=== PATIENT | female | born 1955 | race Caucasian/White ===

== ENCOUNTER 2017-12-08 13:49 | Inpatient (IN) | payer BC ==
[~2017-12-08] VITALS: Ht 167.6 cm; Wt 100.6 kg
[~2017-12-08 13:49] MED LIST: ARIP1TAB7 PO; CAR3125T OR; INSLANTI SC; LAMO200T34 PO; LEVO25TA6 PO; SIMV-13 PO; VENL100T PO
[2017-12-08] MEDS ORDERED: SODIUM CHLORIDE 0.9% 1,000 ML IV ONE (13:55)
[2017-12-08] MEDS ORDERED: ONDANSETRON HCL 4 MG/2 ML VIAL IV ONE (14:00)
[2017-12-08] MEDS ORDERED: LORazepam 2MG/ML-1ML VIAL IV ONE (14:00)
[2017-12-08 14:26] LABS: Basophils # (auto) 0.1 uL; Basophils % (auto) 0.6 % (0.0-2.0); Eosinophils # (auto) 0.6 uL; Eosinophils % (auto) 4.5 % (0.0-7.0); Hematocrit 38.2 % (36.0-46.0); Hemoglobin 12.3 g/dL (12.2-16.2); Lymphocytes # (auto) 3.6 uL; Lymphocytes % (auto) 27.1 % (10.0-50.0); Mean Corpuscular Hgb Conc. 32.1 g/dL (32.0-36.0); Mean Corpuscular Volume 87.3 fL (80.0-100.0); Monocytes % (auto) 7.7 % (0.0-12.0); Neutrophils # (auto) 7.9 uL; Neutrophils % (auto) 60.1 % (37.0-80.0); Platelet Count (auto) 339 10^3/uL (140-450); Red Blood Cells 4.38 10^6/uL (4.0-5.20); Red Cell Distribution Width 15.4 % (11.8-14.3); White Blood Cell 13.1 10^3/uL (4.4-10.8)
[2017-12-08 14:50] LABS: Alanine Aminotransferase 35 U/L (13-56); Albumin 3.9 g/dL (3.4-5.0); Alkaline Phosphatase 91 U/L (45-117); Anion Gap 10 (5-15); Aspartate Aminotransferase 24 U/L (15-37); BUN/Creatinine Ratio 23.2; Bilirubin, Total 0.2 mg/dL (0.2-1.0); Blood Urea Nitrogen 29 mg/dL (7-18); Calcium 9.9 mg/dL (8.5-10.1); Carbon Dioxide 24 mmol/L (21-32); Chloride 103 mmol/L (98-107); GFR African American 56 mL/min; GFR Non-African American 46 mL/min; Glucose 80 mg/dL (74-106); Magnesium 2.4 mg/dL (1.6-2.6); Potassium 5.3 mmol/L (3.5-5.1); Sodium 137 mmol/L (136-145); Total Protein 8.8 g/dL (6.4-8.2)
[2017-12-08] MEDS ORDERED: NITROGLYCERIN 0.4 MG SL TAB SL PRN (16:15)
[2017-12-08] MEDS ORDERED: TEMAZEPAM 15 MG CAP PO PRN (16:15)
[2017-12-08] MEDS ORDERED: MORPHINE SULFATE 4 MG/ML SYR/VIAL IV PRN ×2 (16:15)
[2017-12-08] MEDS ORDERED: HYDROcodone-ACET 5/325MG TAB PO PRN (16:15)
[2017-12-08] MEDS ORDERED: D5W/SOD CHLO 0.9% 1,000 ML IV SCH (16:15)
[2017-12-08] MEDS ORDERED: DEXTROSE (50%) 50ML SYRG IV PRN (16:15)
[2017-12-08] MEDS ORDERED: LACTULOSE 20Gm/30ML SOLN PO PRN (16:15)
[2017-12-08] MEDS ORDERED: ACETAMINOPHEN 500 MG TAB PO PRN (16:15)
[2017-12-08] MEDS: SODIUM CHLORIDE 0.9% 1,000 ML IV SCH (16:40)
[2017-12-08] MEDS: ENOXAPARIN SOD 40 MG/0.4 ML SYRINGE SC SCH (16:42)
[2017-12-08] MEDS: metroNIDAZOLE 500MG/100ML 100 ML IV SCH ×2 (16:43→22:41)
[2017-12-08 16:51] LABS: Amylase 42 U/L (25-115); Lipase 77 U/L (73-393)
[2017-12-08 17:29] LABS: INR 1.69 (0.9-1.15); Partial Thromboplastin Time 33.1 sec (22.64-33.71); Prothrombin Time 18.5 sec (9.37-12.3)
[2017-12-08] MEDS: FAMOTIDINE (10MG/ML) 2ML VL IV SCH (18:03)
[2017-12-08] MEDS: buPROPion HCL 75 MG TAB PO SCH (19:09)
[2017-12-08 19:38] LABS: CRP High Sensitivity 1.25 mg/dL (< 0.3)
[2017-12-08 19:42] LABS: Urine Bacteria FEW /hpf (None Seen); Urine Blood Negative /uL (Negative); Urine WBC 2 /hpf (0 - 5)
[2017-12-08] MEDS: ACCU-CHEK COMFORT CURVE STRIP VI SCH (20:00)
[2017-12-08] MEDS ORDERED: WARFARIN SODIUM 2.5 MG TAB PO ONE (21:00)
[2017-12-08 22:00] VITALS: BP 127/64
[2017-12-08] MEDS: ARIPIPRAZOLE 20 MG PO SCH (22:00)
[2017-12-08] MEDS ORDERED: VENLAFAXINE HCL 25MG TABLET PO SCH ×2 (22:00)
[2017-12-08] MEDS ORDERED: lamoTRIgine 100 MG TAB PO SCH (22:00)
[2017-12-08] MEDS ORDERED: VENLAFAXINE HYDROCHLORIDE PO SCH (22:00)
[2017-12-08] MEDS ORDERED: PATIENTS OWN MEDICATION (Simvastatin 40 MG) PO SCH (22:00)
[2017-12-08] MEDS ORDERED: LAMOTRIGINE 200 MG PO SCH (22:00)
[2017-12-08] MEDS: CARVEDILOL 3.125 MG TAB PO SCH (22:25)
[2017-12-08] MEDS: PRAVASTATIN SODIUM 20 MG TAB PO SCH (22:25)
[2017-12-08] MEDS: lamoTRIgine 100 MG TAB PO SCH (22:27)
[2017-12-09] MEDS: ACCU-CHEK COMFORT CURVE STRIP VI SCH ×6 (00:05→20:00)
[2017-12-09 03:32] LABS: Albumin 3.3 g/dL (3.4-5.0); BUN/Creatinine Ratio 19.4; Bilirubin, Total 0.3 mg/dL (0.2-1.0); Calcium 8.6 mg/dL (8.5-10.1); Potassium 4.5 mmol/L (3.5-5.1); Total Protein 7.7 g/dL (6.4-8.2)
[2017-12-09] MEDS: FAMOTIDINE (10MG/ML) 2ML VL IV SCH ×2 (04:26→17:22)
[2017-12-09] MEDS: metroNIDAZOLE 500MG/100ML 100 ML IV SCH ×2 (04:57→11:42)
[2017-12-09 05:23] VITALS: BP 125/74
[2017-12-09] MEDS: SODIUM CHLORIDE 0.9% 1,000 ML IV SCH ×2 (06:00→17:25)
[2017-12-09] MEDS: PROMETHAZINE HCL 25 MG/ML 1ML IV PRN ×3 (06:33→20:58)
[2017-12-09] MEDS: LORazepam 0.5 MG TAB PO PRN (06:33)
[2017-12-09] MEDS: buPROPion HCL 75 MG TAB PO SCH ×2 (06:42→18:16)
[2017-12-09 07:33] LABS: Basophils # (auto) 0.1 uL; Basophils % (auto) 0.7 % (0.0-2.0); Eosinophils # (auto) 0.4 uL; Eosinophils % (auto) 3.5 % (0.0-7.0); Hematocrit 35.7 % (36.0-46.0); Hemoglobin 11.3 g/dL (12.2-16.2); Lymphocytes # (auto) 2.3 uL; Lymphocytes % (auto) 19.5 % (10.0-50.0); Mean Corpuscular Hemoglobin 27.7 pg (28.0-32.0); Mean Corpuscular Hgb Conc. 31.6 g/dL (32.0-36.0); Mean Corpuscular Volume 87.9 fL (80.0-100.0); Monocytes % (auto) 8.4 % (0.0-12.0); Neutrophils # (auto) 7.9 uL; Neutrophils % (auto) 67.9 % (37.0-80.0); Platelet Count (auto) 309 10^3/uL (140-450); Red Blood Cells 4.06 10^6/uL (4.0-5.20); Red Cell Distribution Width 15.8 % (11.8-14.3); White Blood Cell 11.7 10^3/uL (4.4-10.8)
[2017-12-09 07:49] LABS: INR 1.68 (0.9-1.15); Prothrombin Time 18.4 sec (9.37-12.3)
[2017-12-09 08:15] VITALS: BP 134/57
[2017-12-09] MEDS: ASPirin 81 mg TAB PO SCH (10:07)
[2017-12-09] MEDS: CARVEDILOL 3.125 MG TAB PO SCH ×2 (10:07→22:42)
[2017-12-09] MEDS: lamoTRIgine 100 MG TAB PO SCH ×2 (10:08→22:00)
[2017-12-09] MEDS: LEVOTHYROXINE SODIUM 25 MCG TAB PO SCH (10:08)
[2017-12-09] MEDS: ENOXAPARIN SOD 40 MG/0.4 ML SYRINGE SC SCH (10:08)
[2017-12-09] MEDS: PANTOPRAZOLE 40 MG TAB PO SCH (10:08)
[2017-12-09 11:50] VITALS: BP 135/59
[2017-12-09 16:24] VITALS: BP 141/72
[2017-12-09 20:00] VITALS: BP 137/60
[2017-12-09 22:00] VITALS: BP 137/60
[2017-12-09] MEDS: ARIPIPRAZOLE 20 MG PO SCH (22:00)
[2017-12-09] MEDS: PRAVASTATIN SODIUM 20 MG TAB PO SCH (22:42)
[2017-12-09] MEDS: ENOXAPARIN SOD 100 MG/1 ML SYRINGE SC SCH (22:44)
[2017-12-10] VITALS (7 sets, daily range): BP systolic 128–144; BP diastolic 52–76
[2017-12-10] MEDS: ACCU-CHEK COMFORT CURVE STRIP VI SCH ×6 (00:10→18:26)
[2017-12-10] MEDS: FAMOTIDINE (10MG/ML) 2ML VL IV SCH ×2 (04:16→17:12)
[2017-12-10] MEDS: buPROPion HCL 75 MG TAB PO SCH ×2 (07:57→18:38)
[2017-12-10] MEDS: SODIUM CHLORIDE 0.9% 1,000 ML IV SCH ×2 (07:57→22:16)
[2017-12-10] MEDS: LORazepam 0.5 MG TAB PO PRN (08:08)
[2017-12-10] MEDS: ENOXAPARIN SOD 100 MG/1 ML SYRINGE SC SCH ×2 (09:51→22:00)
[2017-12-10] MEDS: LEVOTHYROXINE SODIUM 25 MCG TAB PO SCH (09:52)
[2017-12-10] MEDS: PANTOPRAZOLE 40 MG TAB PO SCH (09:52)
[2017-12-10] MEDS: lamoTRIgine 100 MG TAB PO SCH ×2 (09:52→22:18)
[2017-12-10] MEDS: ASPirin 81 mg TAB PO SCH (09:52)
[2017-12-10] MEDS: CARVEDILOL 3.125 MG TAB PO SCH ×2 (10:05→22:17)
[2017-12-10] MEDS: ARIPIPRAZOLE 20 MG PO SCH (22:00)
[2017-12-10] MEDS: PRAVASTATIN SODIUM 20 MG TAB PO SCH (22:18)
[2017-12-11] MEDS: ACCU-CHEK COMFORT CURVE STRIP VI SCH ×6 (00:17→20:05)
[2017-12-11 05:00] VITALS: BP 122/61
[2017-12-11] MEDS: FAMOTIDINE (10MG/ML) 2ML VL IV SCH ×2 (05:59→16:18)
[2017-12-11 06:31] LABS: Basophils # (auto) 0.1 uL; Basophils % (auto) 0.6 % (0.0-2.0); Eosinophils # (auto) 0.4 uL; Eosinophils % (auto) 3.3 % (0.0-7.0); Hematocrit 33.5 % (36.0-46.0); Hemoglobin 11.1 g/dL (12.2-16.2); Lymphocytes # (auto) 2.8 uL; Lymphocytes % (auto) 23.1 % (10.0-50.0); Mean Corpuscular Hemoglobin 28.8 pg (28.0-32.0); Mean Corpuscular Hgb Conc. 33.1 g/dL (32.0-36.0); Mean Corpuscular Volume 87.2 fL (80.0-100.0); Monocytes # (auto) 1.1 uL; Monocytes % (auto) 9.3 % (0.0-12.0); Neutrophils # (auto) 7.6 uL; Neutrophils % (auto) 63.7 % (37.0-80.0); Nucleated Red Blood Cells % 0.1 %; Platelet Count (auto) 275 10^3/uL (140-450); Red Blood Cells 3.84 10^6/uL (4.0-5.20); Red Cell Distribution Width 15.5 % (11.8-14.3)
[2017-12-11 06:42] LABS: Calcium 8.8 mg/dL (8.5-10.1); Magnesium 2.4 mg/dL (1.6-2.6); Potassium 4.6 mmol/L (3.5-5.1)
[2017-12-11] MEDS: buPROPion HCL 75 MG TAB PO SCH ×2 (07:00→18:16)
[2017-12-11 08:04] VITALS: BP 144/69
[2017-12-11] MEDS ORDERED: LIDOCAINE 2%HCL (LOCAL ANESTH.) INJ 20ML MDV ONE (08:09)
[2017-12-11] MEDS ORDERED: MIDAZOLAM HCL 1MG/1ML-2 ML VIAL ONE (08:22)
[2017-12-11] MEDS ORDERED: fentaNYL CITRATE 100 MCG/2 ML VL ONE (08:22)
[2017-12-11] MEDS ORDERED: ANGIOMAX 250 MG VIAL IV ONE (08:23)
[2017-12-11] MEDS ORDERED: SODIUM CHL 0.9% 0 ML ONE (08:23)
[2017-12-11 08:41] VITALS: BP 144/69
[2017-12-11] MEDS ORDERED: IOHEXOL 350 MG/ML 100ML IJ ONE (08:54)
[2017-12-11] MEDS ORDERED: SODIUM CHLORIDE 0.9% 1,000 ML IV SCH (09:35)
[2017-12-11] MEDS: ASPirin 81 mg TAB PO SCH (09:52)
[2017-12-11] MEDS: ENOXAPARIN SOD 100 MG/1 ML SYRINGE SC SCH ×2 (09:52→21:28)
[2017-12-11] MEDS: PANTOPRAZOLE 40 MG TAB PO SCH (10:46)
[2017-12-11] MEDS: lamoTRIgine 100 MG TAB PO SCH ×2 (10:46→21:42)
[2017-12-11] MEDS: LEVOTHYROXINE SODIUM 25 MCG TAB PO SCH (10:46)
[2017-12-11] MEDS: CARVEDILOL 3.125 MG TAB PO SCH ×2 (10:47→21:41)
[2017-12-11 12:13] VITALS: BP 126/66
[2017-12-11 17:10] VITALS: BP 134/63
[2017-12-11] MEDS: SODIUM CHLORIDE 0.9% 1,000 ML IV SCH (18:16)
[2017-12-11] MEDS: ARIPIPRAZOLE 20 MG PO SCH (21:27)
[2017-12-11] MEDS: PRAVASTATIN SODIUM 20 MG TAB PO SCH (21:42)
[2017-12-11 22:03] VITALS: BP 131/57
[2017-12-12] MEDS: ACCU-CHEK COMFORT CURVE STRIP VI SCH ×4 (00:26→12:00)
[2017-12-12] MEDS: SODIUM CHLORIDE 0.9% 1,000 ML IV SCH (00:29)
[2017-12-12] MEDS: FAMOTIDINE (10MG/ML) 2ML VL IV SCH (04:25)
[2017-12-12 04:41] VITALS: BP 122/52
[2017-12-12 05:28] LABS: Basophils # (auto) 0.1 uL; Basophils % (auto) 0.6 % (0.0-2.0); Eosinophils # (auto) 0.3 uL; Hematocrit 32.9 % (36.0-46.0); Hemoglobin 10.8 g/dL (12.2-16.2); Lymphocytes # (auto) 1.8 uL; Lymphocytes % (auto) 17.3 % (10.0-50.0); Mean Corpuscular Hemoglobin 28.6 pg (28.0-32.0); Mean Corpuscular Hgb Conc. 32.7 g/dL (32.0-36.0); Mean Corpuscular Volume 87.6 fL (80.0-100.0); Monocytes % (auto) 9.4 % (0.0-12.0); Neutrophils # (auto) 7.1 uL; Neutrophils % (auto) 69.7 % (37.0-80.0); Nucleated Red Blood Cells % 0.1 %; Platelet Count (auto) 254 10^3/uL (140-450); Red Blood Cells 3.75 10^6/uL (4.0-5.20); Red Cell Distribution Width 15.8 % (11.8-14.3); White Blood Cell 10.2 10^3/uL (4.4-10.8)
[2017-12-12 05:43] LABS: INR 1.56 (0.9-1.15); Partial Thromboplastin Time 33.3 sec (22.64-33.71); Prothrombin Time 17.1 sec (9.37-12.3)
[2017-12-12 05:51] LABS: Calcium 8.3 mg/dL (8.5-10.1); Magnesium 2.3 mg/dL (1.6-2.6); Potassium 4.3 mmol/L (3.5-5.1)
[2017-12-12] MEDS: buPROPion HCL 75 MG TAB PO SCH (06:06)
[2017-12-12] MEDS ORDERED: IOHEXOL 350 MG/ML 100ML IJ ONE (07:14)
[2017-12-12] MEDS: ASPirin 81 mg TAB PO SCH (07:31)
[2017-12-12] MEDS: ENOXAPARIN SOD 100 MG/1 ML SYRINGE SC SCH (07:31)
[2017-12-12 08:00] VITALS: BP 132/62
[2017-12-12 08:31] VITALS: BP 132/62
[2017-12-12] MEDS: LEVOTHYROXINE SODIUM 25 MCG TAB PO SCH (09:21)
[2017-12-12] MEDS: lamoTRIgine 100 MG TAB PO SCH (09:21)
[2017-12-12] MEDS: CARVEDILOL 3.125 MG TAB PO SCH (09:22)
[2017-12-12] MEDS: PANTOPRAZOLE 40 MG TAB PO SCH (09:23)
[2017-12-12] MEDS ORDERED: LISINOPRIL 5 MG TAB PO SCH (10:00)
[2017-12-12 10:36] VITALS: BP 132/62
[2017-12-12 12:18] VITALS: BP 133/67
== END 2017-12-12 13:23 | disposition home or self-care (01) | DRG 682 ==
LOC: EDBD 13:49 → ER 13:49 → TELE 13:50 → TELE-EAST 19:30
PROVIDERS: ADMIT Internal Medicine; ATTEND Internal Medicine
PROC: 4A023N8 Measurement of Cardiac Sampling and Pressure, Bilateral, Percutaneous Approach (ICD-10-PCS; principal; 2017-12-08)
PROC: B2151ZZ Fluoroscopy of Left Heart using Low Osmolar Contrast (ICD-10-PCS; 2017-12-08)
PROC: B2111ZZ Fluoroscopy of Multiple Coronary Arteries using Low Osmolar Contrast (ICD-10-PCS; 2017-12-08)
DX: N17.9 Acute kidney failure, unspecified (principal); I21.4 Non-ST elevation (NSTEMI) myocardial infarction; E11.649 Type 2 diabetes mellitus with hypoglycemia without coma; I11.0 Hypertensive heart disease with heart failure; R65.10 Systemic inflammatory response syndrome (SIRS) of non-infectious origin without acute organ dysfunction; E87.5 Hyperkalemia; I50.1 Left ventricular failure, unspecified; I42.0 Dilated cardiomyopathy; E86.0 Dehydration; I08.0 Rheumatic disorders of both mitral and aortic valves; D72.829 Elevated white blood cell count, unspecified; E03.9 Hypothyroidism, unspecified; E66.9 Obesity, unspecified; E78.5 Hyperlipidemia, unspecified; F31.9 Bipolar disorder, unspecified; Z96.41 Presence of insulin pump (external) (internal); E86.9 Volume depletion, unspecified; I25.10 Atherosclerotic heart disease of native coronary artery without angina pectoris; J40 Bronchitis, not specified as acute or chronic; Z79.4 Long term (current) use of insulin; Z86.73 Personal history of transient ischemic attack (TIA), and cerebral infarction without residual deficits; I25.2 Old myocardial infarction
CPT/HCPCS: 36415; 71045; 80048; 80053; 80061; 81001; 82150; 82550; 82962; 83036; 83690; 83735; 84484; 85025; 85379; 85610; 85652; 85730; 86141; 87081; 93005; 93306; 93460; 96361; 96374; 96375; 99152; J2250; J2405; J3490

== ENCOUNTER 2018-08-10 01:28 | Emergency (ER) | payer BC, OTHER ==
[~2018-08-10] VITALS: Ht 170.2 cm; Wt 90.7 kg
[2018-08-10 03:12] LABS: Basophils # (auto) 0.1 uL; Basophils % (auto) 0.7 % (0.0-2.0); Eosinophils # (auto) 0.4 uL; Eosinophils % (auto) 3.6 % (0.0-7.0); Hemoglobin 12.1 g/dL (12.2-16.2); Lymphocytes # (auto) 2.3 uL; Lymphocytes % (auto) 20.5 % (10.0-50.0); Mean Corpuscular Hemoglobin 28.7 pg (28.0-32.0); Mean Corpuscular Hgb Conc. 31.7 g/dL (32.0-36.0); Mean Corpuscular Volume 90.5 fL (80.0-100.0); Monocytes # (auto) 0.9 uL; Monocytes % (auto) 8.3 % (0.0-12.0); Neutrophils # (auto) 7.6 uL; Neutrophils % (auto) 66.9 % (37.0-80.0); Platelet Count (auto) 307 10^3/uL (140-450); White Blood Cell 11.4 10^3/uL (4.4-10.8)
[2018-08-10 03:23] LABS: Albumin 3.5 g/dL (3.4-5.0); Calcium 8.9 mg/dL (8.5-10.1); Potassium 4.4 mmol/L (3.5-5.1)
[2018-08-10 03:29] LABS: BUN/Creatinine Ratio 14.2; Bilirubin, Total 0.3 mg/dL (0.2-1.0)
[2018-08-10 04:21] VITALS: BP 137/72
== END 2018-08-10 04:24 | disposition home or self-care (01) ==
LOC: EDBD 01:28 → ER 01:40
DX: E16.0 Drug-induced hypoglycemia without coma (principal); T38.3X5A Adverse effect of insulin and oral hypoglycemic [antidiabetic] drugs, initial encounter; I25.10 Atherosclerotic heart disease of native coronary artery without angina pectoris; E11.9 Type 2 diabetes mellitus without complications; E78.5 Hyperlipidemia, unspecified; I10 Essential (primary) hypertension; I25.2 Old myocardial infarction; E07.9 Disorder of thyroid, unspecified; Z90.49 Acquired absence of other specified parts of digestive tract; Z79.4 Long term (current) use of insulin; Z79.899 Other long term (current) drug therapy; Z86.73 Personal history of transient ischemic attack (TIA), and cerebral infarction without residual deficits; Y92.89 Other specified places as the place of occurrence of the external cause
CPT/HCPCS: 36415; 71045; 80053; 82962; 85025

== ENCOUNTER 2018-08-21 00:55 | Inpatient (IN) | payer OTHER ==
[~2018-08-21] VITALS: Ht 167.6 cm; Wt 93.1 kg
[2018-08-21 01:45] LABS: Basophils # (auto) 0.1 uL; Basophils % (auto) 0.6 % (0.0-2.0); Eosinophils # (auto) 0.3 uL; Eosinophils % (auto) 2.4 % (0.0-7.0); Hematocrit 35.9 % (36.0-46.0); Hemoglobin 11.4 g/dL (12.2-16.2); Lymphocytes # (auto) 1.6 uL; Lymphocytes % (auto) 11.5 % (10.0-50.0); Mean Corpuscular Hemoglobin 28.7 pg (28.0-32.0); Mean Corpuscular Hgb Conc. 31.9 g/dL (32.0-36.0); Mean Corpuscular Volume 89.9 fL (80.0-100.0); Monocytes # (auto) 0.9 uL; Monocytes % (auto) 6.7 % (0.0-12.0); Neutrophils # (auto) 10.9 uL; Neutrophils % (auto) 78.8 % (37.0-80.0); Nucleated Red Blood Cells % 0.1 %; Platelet Count (auto) 267 10^3/uL (140-450); Red Blood Cells 3.99 10^6/uL (4.0-5.20); Red Cell Distribution Width 13.8 % (11.8-14.3); White Blood Cell 13.9 10^3/uL (4.4-10.8)
[2018-08-21 02:03] LABS: Albumin 3.2 g/dL (3.4-5.0); BUN/Creatinine Ratio 11.2; Calcium 8.3 mg/dL (8.5-10.1); Potassium 3.8 mmol/L (3.5-5.1)
[2018-08-21 02:06] LABS: Bilirubin, Total 0.2 mg/dL (0.2-1.0); Total Protein 7.4 g/dL (6.4-8.2)
[2018-08-21 05:50] LABS: Salicylate < 1.7 mg/dL (2.8-20.0)
[2018-08-21 05:52] LABS: Acetaminophen < 2.0 ug/mL (10-30)
[2018-08-21] MEDS ORDERED: DEXTROSE (50%) 50ML SYRG IV PRN ×2 (07:30→15:30)
[2018-08-21] MEDS: ACCU-CHEK COMFORT CURVE STRIP VI SCH ×6 (08:10→22:29)
[2018-08-21 08:36] LABS: Urine Bacteria FEW /hpf (None Seen); Urine Blood Negative /uL (Negative); Urine Mucus FEW (None Seen); Urine WBC 2 /hpf (0 - 5)
[2018-08-21 08:41] LABS: Alcohol, Urine < 3.0 mg/dL (0-5); Amphetamine Screen, Urine NEGATIVE (NEGATIVE); Barbiturate Scree,Urine NEGATIVE (NEGATIVE); Benzodiazephine Screen, Urine NEGATIVE (NEGATIVE); Cannabinoid Screen, Urine NEGATIVE (NEGATIVE); Cocaine Screen, Urine NEGATIVE (NEGATIVE); Opiate Scree,Urine NEGATIVE (NEGATIVE); Phencyclidine Screen, Urine NEGATIVE (NEGATIVE)
[2018-08-21 08:48] VITALS: BP 148/69
[2018-08-21] MEDS: VENLAFAXINE HCL 25MG TABLET PO SCH ×2 (10:10→22:28)
[2018-08-21] MEDS: lamoTRIgine 100 MG TAB PO SCH ×2 (10:10→22:28)
[2018-08-21] MEDS: CARVEDILOL 3.125 MG TAB PO SCH ×2 (10:11→22:29)
[2018-08-21] MEDS: ALPRAZolam 0.5 MG TAB PO PRN (12:48)
[2018-08-21 13:00] VITALS: BP 131/57
[2018-08-21 17:00] VITALS: BP 138/68
[2018-08-21] MEDS ORDERED: PRAZ2CAP PO (18:03)
[2018-08-21] MEDS ORDERED: ARIP1TAB5 PO (18:03)
[2018-08-21] MEDS ORDERED: DULO60CA PO (18:09)
[2018-08-21] MEDS ORDERED: WARF1TAB36 PO (18:09)
[2018-08-21] MEDS ORDERED: LISI10TA6 PO (18:09)
[2018-08-21] MEDS ORDERED: BUPR150T6 PO (18:09)
[2018-08-21] MEDS ORDERED: CLON0.5T10 PO (18:09)
[2018-08-21] MEDS: InsuLIN REG 1unit/0.01ml Soln (100units/ml) SC SCH ×2 (18:47→22:29)
[2018-08-21 22:00] VITALS: BP 122/53
[2018-08-22] MEDS: ACCU-CHEK COMFORT CURVE STRIP VI SCH ×9 (02:00→22:22)
[2018-08-22 05:04] VITALS: BP 125/65
[2018-08-22] MEDS: LEVOTHYROXINE SODIUM 25 MCG TAB PO SCH (06:30)
[2018-08-22] MEDS: InsuLIN REG 1unit/0.01ml Soln (100units/ml) SC SCH ×4 (06:31→22:32)
[2018-08-22 08:39] VITALS: BP 134/63
[2018-08-22] MEDS: lamoTRIgine 100 MG TAB PO SCH ×2 (10:17→22:32)
[2018-08-22] MEDS: CARVEDILOL 3.125 MG TAB PO SCH ×2 (10:18→22:31)
[2018-08-22] MEDS: VENLAFAXINE HCL 25MG TABLET PO SCH ×2 (10:19→22:31)
[2018-08-22 13:00] VITALS: BP 166/65
[2018-08-22 17:00] VITALS: BP 166/70
[2018-08-22 22:00] VITALS: BP 156/69
[2018-08-22] MEDS ORDERED: INSULIN LANTUS (GLARGINE) 1 /0.01ml (100units/ml) SC SCH (22:00)
[2018-08-23 05:00] VITALS: BP 142/68
[2018-08-23] MEDS: LEVOTHYROXINE SODIUM 25 MCG TAB PO SCH (06:26)
[2018-08-23] MEDS: ACCU-CHEK COMFORT CURVE STRIP VI SCH ×4 (06:26→22:07)
[2018-08-23] MEDS: InsuLIN REG 1unit/0.01ml Soln (100units/ml) SC SCH ×4 (06:27→22:15)
[2018-08-23 08:26] VITALS: BP 135/66
[2018-08-23] MEDS: VENLAFAXINE HCL 25MG TABLET PO SCH ×2 (11:55→22:07)
[2018-08-23] MEDS: lamoTRIgine 100 MG TAB PO SCH ×2 (11:55→22:06)
[2018-08-23] MEDS: CARVEDILOL 3.125 MG TAB PO SCH ×2 (11:56→22:07)
[2018-08-23 12:48] VITALS: BP 185/79
[2018-08-23 17:19] VITALS: BP 148/70
[2018-08-23 21:25] VITALS: BP 119/56
[2018-08-23] MEDS ORDERED: INSULIN LANTUS (GLARGINE) 1 /0.01ml (100units/ml) SC SCH (22:00)
[2018-08-24 04:32] VITALS: BP 108/56
[2018-08-24] MEDS: LEVOTHYROXINE SODIUM 25 MCG TAB PO SCH (06:21)
[2018-08-24] MEDS: InsuLIN REG 1unit/0.01ml Soln (100units/ml) SC SCH ×4 (06:21→23:00)
[2018-08-24] MEDS: ACCU-CHEK COMFORT CURVE STRIP VI SCH ×4 (06:22→23:00)
[2018-08-24 08:54] VITALS: BP 131/63
[2018-08-24] MEDS: lamoTRIgine 100 MG TAB PO SCH ×2 (10:45→22:58)
[2018-08-24] MEDS: CARVEDILOL 3.125 MG TAB PO SCH ×2 (10:47→22:58)
[2018-08-24] MEDS: VENLAFAXINE HCL 25MG TABLET PO SCH ×3 (10:53→22:58)
[2018-08-24 13:27] VITALS: BP 125/70
[2018-08-24 17:14] VITALS: BP 115/63
[2018-08-24 22:00] VITALS: BP 128/64
[2018-08-24] MEDS ORDERED: INSULIN LANTUS (GLARGINE) 1 /0.01ml (100units/ml) SC SCH (22:00)
[2018-08-25 05:00] VITALS: BP 125/67
[2018-08-25] MEDS: LEVOTHYROXINE SODIUM 25 MCG TAB PO SCH (06:27)
[2018-08-25] MEDS: ACCU-CHEK COMFORT CURVE STRIP VI SCH ×4 (06:28→21:34)
[2018-08-25] MEDS: InsuLIN REG 1unit/0.01ml Soln (100units/ml) SC SCH ×4 (06:37→21:33)
[2018-08-25 08:00] VITALS: BP 130/63
[2018-08-25 09:00] VITALS: BP 130/63
[2018-08-25] MEDS: VENLAFAXINE HCL 25MG TABLET PO SCH ×2 (09:43→21:25)
[2018-08-25] MEDS: lamoTRIgine 100 MG TAB PO SCH ×2 (09:43→21:24)
[2018-08-25] MEDS: CARVEDILOL 3.125 MG TAB PO SCH ×2 (09:43→21:24)
[2018-08-25 13:00] VITALS: BP 137/71
[2018-08-25 17:05] VITALS: BP 134/71
[2018-08-25] MEDS: INSULIN LANTUS (GLARGINE) 1 /0.01ml (100units/ml) SC SCH (18:09)
[2018-08-25] MEDS: ALPRAZolam 0.5 MG TAB PO PRN (18:12)
[2018-08-25] MEDS ORDERED: HYDROmorphone HCL 2 MG/ML VL IV PRN (18:45)
[2018-08-25 21:03] VITALS: BP 111/56
[2018-08-25] MEDS ORDERED: INSULIN LANTUS (GLARGINE) 1 /0.01ml (100units/ml) SC SCH (22:00)
[2018-08-26 04:53] VITALS: BP 124/65
[2018-08-26] MEDS: ACCU-CHEK COMFORT CURVE STRIP VI SCH ×4 (06:15→21:24)
[2018-08-26] MEDS: LEVOTHYROXINE SODIUM 25 MCG TAB PO SCH (06:36)
[2018-08-26] MEDS: InsuLIN REG 1unit/0.01ml Soln (100units/ml) SC SCH ×4 (06:36→21:33)
[2018-08-26] MEDS: INSULIN LANTUS (GLARGINE) 1 /0.01ml (100units/ml) SC SCH ×2 (06:37→17:57)
[2018-08-26 06:38] LABS: Basophils # (auto) 0.1 uL; Basophils % (auto) 0.7 % (0.0-2.0); Eosinophils # (auto) 0.5 uL; Eosinophils % (auto) 4.2 % (0.0-7.0); Hematocrit 37.6 % (36.0-46.0); Hemoglobin 12.4 g/dL (12.2-16.2); Lymphocytes # (auto) 2.6 uL; Lymphocytes % (auto) 21.9 % (10.0-50.0); Mean Corpuscular Hemoglobin 29.8 pg (28.0-32.0); Mean Corpuscular Volume 90.3 fL (80.0-100.0); Monocytes # (auto) 0.9 uL; Monocytes % (auto) 7.9 % (0.0-12.0); Neutrophils # (auto) 7.7 uL; Neutrophils % (auto) 65.3 % (37.0-80.0); Nucleated Red Blood Cells % 0.1 %; Platelet Count (auto) 310 10^3/uL (140-450); Red Blood Cells 4.16 10^6/uL (4.0-5.20); Red Cell Distribution Width 13.8 % (11.8-14.3); White Blood Cell 11.7 10^3/uL (4.4-10.8)
[2018-08-26 06:56] LABS: Potassium 4.7 mmol/L (3.5-5.1)
[2018-08-26 07:01] LABS: Albumin 3.4 g/dL (3.4-5.0); BUN/Creatinine Ratio 27.5; Bilirubin, Total 0.4 mg/dL (0.2-1.0); Calcium 9.7 mg/dL (8.5-10.1); Total Protein 7.6 g/dL (6.4-8.2)
[2018-08-26 08:00] VITALS: BP 143/60
[2018-08-26 09:00] VITALS: BP 143/60
[2018-08-26] MEDS: lamoTRIgine 100 MG TAB PO SCH ×2 (09:26→21:23)
[2018-08-26] MEDS: VENLAFAXINE HCL 25MG TABLET PO SCH ×2 (09:27→21:24)
[2018-08-26] MEDS: CARVEDILOL 3.125 MG TAB PO SCH ×2 (09:28→21:23)
[2018-08-26 13:00] VITALS: BP 124/58
[2018-08-26 17:00] VITALS: BP 128/64
[2018-08-26 21:58] VITALS: BP 121/60
[2018-08-27 04:36] VITALS: BP 132/66
[2018-08-27] MEDS: LEVOTHYROXINE SODIUM 25 MCG TAB PO SCH (06:25)
[2018-08-27] MEDS: ACCU-CHEK COMFORT CURVE STRIP VI SCH ×4 (06:26→21:57)
[2018-08-27] MEDS: INSULIN LANTUS (GLARGINE) 1 /0.01ml (100units/ml) SC SCH ×2 (07:00→17:19)
[2018-08-27] MEDS: InsuLIN REG 1unit/0.01ml Soln (100units/ml) SC SCH ×4 (07:00→22:35)
[2018-08-27] MEDS: ALPRAZolam 0.5 MG TAB PO PRN (08:28)
[2018-08-27 09:00] VITALS: BP 142/75
[2018-08-27] MEDS: VENLAFAXINE HCL 25MG TABLET PO SCH ×2 (09:37→21:53)
[2018-08-27] MEDS: lamoTRIgine 100 MG TAB PO SCH ×2 (09:37→21:53)
[2018-08-27] MEDS: CARVEDILOL 3.125 MG TAB PO SCH ×2 (09:38→21:53)
[2018-08-27 13:00] VITALS: BP 127/62
[2018-08-27 16:41] VITALS: BP 116/61
[2018-08-27 22:00] VITALS: BP 118/52
[2018-08-28 05:00] VITALS: BP 139/62
[2018-08-28] MEDS: LEVOTHYROXINE SODIUM 25 MCG TAB PO SCH (06:26)
[2018-08-28] MEDS: ACCU-CHEK COMFORT CURVE STRIP VI SCH ×4 (06:27→22:00)
[2018-08-28] MEDS: InsuLIN REG 1unit/0.01ml Soln (100units/ml) SC SCH ×4 (06:32→22:00)
[2018-08-28] MEDS: INSULIN LANTUS (GLARGINE) 1 /0.01ml (100units/ml) SC SCH ×2 (06:33→17:45)
[2018-08-28 08:00] VITALS: BP 99/56
[2018-08-28 09:20] VITALS: BP 122/50
[2018-08-28] MEDS: VENLAFAXINE HCL 25MG TABLET PO SCH ×2 (10:50→22:51)
[2018-08-28] MEDS: CARVEDILOL 3.125 MG TAB PO SCH ×2 (10:50→22:53)
[2018-08-28] MEDS: lamoTRIgine 100 MG TAB PO SCH ×2 (10:50→22:52)
[2018-08-28 12:30] VITALS: BP 134/68
[2018-08-28 17:01] VITALS: BP 132/64
[2018-08-28] MEDS: ALPRAZolam 0.5 MG TAB PO PRN (18:17)
[2018-08-28 21:49] VITALS: BP 128/69
[2018-08-29 04:45] VITALS: BP 106/70
[2018-08-29] MEDS: LEVOTHYROXINE SODIUM 25 MCG TAB PO SCH (06:24)
[2018-08-29] MEDS: ACCU-CHEK COMFORT CURVE STRIP VI SCH ×4 (06:26→21:54)
[2018-08-29] MEDS: INSULIN LANTUS (GLARGINE) 1 /0.01ml (100units/ml) SC SCH ×2 (06:26→17:19)
[2018-08-29] MEDS: InsuLIN REG 1unit/0.01ml Soln (100units/ml) SC SCH ×4 (06:26→21:54)
[2018-08-29 08:00] VITALS: BP 106/70
[2018-08-29 08:32] VITALS: BP 146/65
[2018-08-29] MEDS: lamoTRIgine 100 MG TAB PO SCH ×2 (10:38→21:53)
[2018-08-29] MEDS: CARVEDILOL 3.125 MG TAB PO SCH ×2 (10:39→21:53)
[2018-08-29] MEDS ORDERED: INSULIN LANTUS (GLARGINE) 1 /0.01ml (100units/ml) SC ONE (10:45)
[2018-08-29] MEDS: VENLAFAXINE HCL 25MG TABLET PO SCH ×2 (11:02→21:53)
[2018-08-29] MEDS: ALPRAZolam 0.5 MG TAB PO PRN (11:02)
[2018-08-29 13:00] VITALS: BP 113/55
[2018-08-29 17:28] VITALS: BP 142/65
[2018-08-29 22:00] VITALS: BP 122/53
[2018-08-30 05:00] VITALS: BP 125/60
[2018-08-30] MEDS: LEVOTHYROXINE SODIUM 25 MCG TAB PO SCH (06:11)
[2018-08-30] MEDS: ACCU-CHEK COMFORT CURVE STRIP VI SCH ×4 (06:42→22:40)
[2018-08-30] MEDS: InsuLIN REG 1unit/0.01ml Soln (100units/ml) SC SCH ×4 (06:42→22:43)
[2018-08-30] MEDS: INSULIN LANTUS (GLARGINE) 1 /0.01ml (100units/ml) SC SCH ×2 (08:56→17:22)
[2018-08-30 09:00] VITALS: BP 128/66
[2018-08-30] MEDS: CARVEDILOL 3.125 MG TAB PO SCH ×2 (10:32→22:39)
[2018-08-30] MEDS: lamoTRIgine 100 MG TAB PO SCH ×2 (10:32→22:38)
[2018-08-30 13:00] VITALS: BP 128/72
[2018-08-30] MEDS: VENLAFAXINE HCL 25MG TABLET PO SCH ×2 (14:38→22:38)
[2018-08-30 22:37] VITALS: BP 126/75
[2018-08-31 04:33] VITALS: BP 129/72
[2018-08-31] MEDS: LEVOTHYROXINE SODIUM 25 MCG TAB PO SCH (06:16)
[2018-08-31] MEDS: InsuLIN REG 1unit/0.01ml Soln (100units/ml) SC SCH ×4 (06:24→22:45)
[2018-08-31] MEDS: ACCU-CHEK COMFORT CURVE STRIP VI SCH ×4 (06:24→22:39)
[2018-08-31 09:00] VITALS: BP 112/60
[2018-08-31] MEDS: INSULIN LANTUS (GLARGINE) 1 /0.01ml (100units/ml) SC SCH ×2 (09:14→18:03)
[2018-08-31] MEDS: VENLAFAXINE HCL 25MG TABLET PO SCH ×2 (10:00→22:00)
[2018-08-31] MEDS: CARVEDILOL 3.125 MG TAB PO SCH ×2 (10:05→22:38)
[2018-08-31] MEDS: lamoTRIgine 100 MG TAB PO SCH ×2 (10:05→22:39)
[2018-08-31 17:00] VITALS: BP 120/59
[2018-08-31 22:00] VITALS: BP 114/57
[2018-08-31] MEDS ORDERED: BISACODYL 10 MG RECT SUPP PR PRN (22:15)
[2018-09-01 05:00] VITALS: BP 110/61
[2018-09-01] MEDS: ACCU-CHEK COMFORT CURVE STRIP VI SCH ×4 (06:18→22:12)
[2018-09-01] MEDS: LEVOTHYROXINE SODIUM 25 MCG TAB PO SCH (06:18)
[2018-09-01] MEDS: INSULIN LANTUS (GLARGINE) 1 /0.01ml (100units/ml) SC SCH ×2 (06:25→17:49)
[2018-09-01] MEDS: InsuLIN REG 1unit/0.01ml Soln (100units/ml) SC SCH ×4 (06:25→22:12)
[2018-09-01 08:34] VITALS: BP 119/74
[2018-09-01] MEDS: CARVEDILOL 3.125 MG TAB PO SCH ×2 (09:31→22:13)
[2018-09-01] MEDS: lamoTRIgine 100 MG TAB PO SCH ×2 (09:31→22:14)
[2018-09-01] MEDS: DOCUSATE SOD 100 MG CAP PO SCH ×2 (09:31→22:13)
[2018-09-01] MEDS: VENLAFAXINE HCL 25MG TABLET PO SCH ×2 (10:00→22:15)
[2018-09-01 13:00] VITALS: BP 130/55
[2018-09-01 17:00] VITALS: BP 123/60
[2018-09-01 22:00] VITALS: BP 108/58
[2018-09-02 05:13] VITALS: BP 127/64
[2018-09-02] MEDS: LEVOTHYROXINE SODIUM 25 MCG TAB PO SCH (06:40)
[2018-09-02] MEDS: ACCU-CHEK COMFORT CURVE STRIP VI SCH ×4 (06:41→21:19)
[2018-09-02] MEDS: InsuLIN REG 1unit/0.01ml Soln (100units/ml) SC SCH ×4 (07:03→21:19)
[2018-09-02] MEDS: INSULIN LANTUS (GLARGINE) 1 /0.01ml (100units/ml) SC SCH ×2 (07:04→17:37)
[2018-09-02 08:00] VITALS: BP 117/50
[2018-09-02 09:00] VITALS: BP 121/58
[2018-09-02] MEDS ORDERED: INSULIN LANTUS (GLARGINE) 1 /0.01ml (100units/ml) SC ONE (10:15)
[2018-09-02] MEDS: lamoTRIgine 100 MG TAB PO SCH ×2 (10:25→21:16)
[2018-09-02] MEDS: DOCUSATE SOD 100 MG CAP PO SCH ×2 (10:25→21:17)
[2018-09-02] MEDS: CARVEDILOL 3.125 MG TAB PO SCH ×2 (10:26→21:17)
[2018-09-02] MEDS ORDERED: VENLAFAXINE HCL 37.5MG TABLET PO ONE (10:30)
[2018-09-02] MEDS: VENLAFAXINE HCL 37.5MG TABLET PO SCH ×2 (10:31→21:18)
[2018-09-02 13:00] VITALS: BP 130/62
[2018-09-02 17:00] VITALS: BP 144/70
[2018-09-02] MEDS: ALPRAZolam 0.5 MG TAB PO PRN (17:38)
[2018-09-02 21:22] VITALS: BP 115/54
[2018-09-03 05:33] VITALS: BP 132/58
[2018-09-03] MEDS: LEVOTHYROXINE SODIUM 25 MCG TAB PO SCH (06:12)
[2018-09-03] MEDS: ACCU-CHEK COMFORT CURVE STRIP VI SCH ×4 (06:12→22:06)
[2018-09-03] MEDS: INSULIN LANTUS (GLARGINE) 1 /0.01ml (100units/ml) SC SCH ×2 (06:16→17:56)
[2018-09-03] MEDS: InsuLIN REG 1unit/0.01ml Soln (100units/ml) SC SCH ×4 (06:17→22:06)
[2018-09-03 08:00] VITALS: BP 129/57
[2018-09-03 09:15] VITALS: BP 129/57
[2018-09-03] MEDS: DOCUSATE SOD 100 MG CAP PO SCH ×2 (10:04→22:05)
[2018-09-03] MEDS: VENLAFAXINE HCL 37.5MG TABLET PO SCH ×2 (10:05→22:06)
[2018-09-03] MEDS: lamoTRIgine 100 MG TAB PO SCH ×2 (10:05→22:06)
[2018-09-03] MEDS: CARVEDILOL 3.125 MG TAB PO SCH ×2 (10:05→22:05)
[2018-09-03 13:33] VITALS: BP 110/50
[2018-09-03 17:00] VITALS: BP 122/54
[2018-09-03 22:00] VITALS: BP 104/56
[2018-09-04] VITALS (7 sets, daily range): BP systolic 97–135; BP diastolic 56–69
[2018-09-04] MEDS: ACCU-CHEK COMFORT CURVE STRIP VI SCH ×4 (06:47→22:07)
[2018-09-04] MEDS: LEVOTHYROXINE SODIUM 25 MCG TAB PO SCH (06:47)
[2018-09-04] MEDS: INSULIN LANTUS (GLARGINE) 1 /0.01ml (100units/ml) SC SCH ×2 (06:48→17:48)
[2018-09-04] MEDS: InsuLIN REG 1unit/0.01ml Soln (100units/ml) SC SCH ×4 (06:48→22:07)
[2018-09-04] MEDS: DOCUSATE SOD 100 MG CAP PO SCH ×2 (10:02→22:06)
[2018-09-04] MEDS: lamoTRIgine 100 MG TAB PO SCH ×2 (10:03→22:07)
[2018-09-04] MEDS: VENLAFAXINE HCL 37.5MG TABLET PO SCH ×2 (10:03→22:06)
[2018-09-04] MEDS: CARVEDILOL 3.125 MG TAB PO SCH ×2 (10:03→22:06)
[2018-09-04] MEDS: ALPRAZolam 0.5 MG TAB PO PRN (12:04)
[2018-09-04 16:12] LABS: Basophils # (auto) 0.1 uL; Basophils % (auto) 0.8 % (0.0-2.0); Eosinophils # (auto) 0.4 uL; Eosinophils % (auto) 3.4 % (0.0-7.0); Hematocrit 35.7 % (36.0-46.0); Hemoglobin 11.4 g/dL (12.2-16.2); Lymphocytes # (auto) 2.6 uL; Lymphocytes % (auto) 22.6 % (10.0-50.0); Mean Corpuscular Volume 90.7 fL (80.0-100.0); Monocytes # (auto) 0.8 uL; Monocytes % (auto) 6.9 % (0.0-12.0); Neutrophils # (auto) 7.6 uL; Neutrophils % (auto) 66.3 % (37.0-80.0); Platelet Count (auto) 307 10^3/uL (140-450); Red Blood Cells 3.94 10^6/uL (4.0-5.20); Red Cell Distribution Width 13.3 % (11.8-14.3); White Blood Cell 11.4 10^3/uL (4.4-10.8)
[2018-09-04 16:34] LABS: BUN/Creatinine Ratio 17.2; Calcium 8.6 mg/dL (8.5-10.1); Potassium 4.2 mmol/L (3.5-5.1)
[2018-09-05 05:00] VITALS: BP 109/58
[2018-09-05] MEDS: LEVOTHYROXINE SODIUM 25 MCG TAB PO SCH (06:26)
[2018-09-05] MEDS: InsuLIN REG 1unit/0.01ml Soln (100units/ml) SC SCH ×4 (06:27→22:06)
[2018-09-05] MEDS: INSULIN LANTUS (GLARGINE) 1 /0.01ml (100units/ml) SC SCH ×2 (06:27→18:22)
[2018-09-05] MEDS: ACCU-CHEK COMFORT CURVE STRIP VI SCH ×4 (06:27→22:06)
[2018-09-05 08:36] VITALS: BP 123/61
[2018-09-05] MEDS: lamoTRIgine 100 MG TAB PO SCH ×2 (09:34→22:05)
[2018-09-05] MEDS: CARVEDILOL 3.125 MG TAB PO SCH ×2 (09:34→22:05)
[2018-09-05] MEDS: DOCUSATE SOD 100 MG CAP PO SCH ×2 (09:34→22:05)
[2018-09-05] MEDS: VENLAFAXINE HCL 37.5MG TABLET PO SCH ×2 (09:35→22:05)
[2018-09-05 13:25] VITALS: BP 127/63
[2018-09-05 21:54] VITALS: BP 108/52
[2018-09-05] MEDS: risperiDONE 1 MG TAB PO SCH (22:05)
[2018-09-06 04:50] VITALS: BP 107/56
[2018-09-06] MEDS: LEVOTHYROXINE SODIUM 25 MCG TAB PO SCH (06:26)
[2018-09-06] MEDS: InsuLIN REG 1unit/0.01ml Soln (100units/ml) SC SCH ×4 (06:26→22:22)
[2018-09-06] MEDS: INSULIN LANTUS (GLARGINE) 1 /0.01ml (100units/ml) SC SCH ×2 (06:27→19:19)
[2018-09-06] MEDS: ACCU-CHEK COMFORT CURVE STRIP VI SCH ×4 (06:27→22:22)
[2018-09-06 09:00] VITALS: BP 112/62
[2018-09-06] MEDS: DOCUSATE SOD 100 MG CAP PO SCH ×2 (10:22→22:21)
[2018-09-06] MEDS: VENLAFAXINE HCL 37.5MG TABLET PO SCH ×2 (10:23→22:21)
[2018-09-06] MEDS: lamoTRIgine 100 MG TAB PO SCH ×2 (10:24→22:21)
[2018-09-06] MEDS: CARVEDILOL 3.125 MG TAB PO SCH ×2 (10:27→22:21)
[2018-09-06 13:00] VITALS: BP 104/59
[2018-09-06 18:20] VITALS: BP 126/68
[2018-09-06 22:00] VITALS: BP 104/57
[2018-09-06] MEDS: risperiDONE 1 MG TAB PO SCH (22:21)
[2018-09-07] MEDS: LEVOTHYROXINE SODIUM 25 MCG TAB PO SCH (05:57)
[2018-09-07] MEDS: InsuLIN REG 1unit/0.01ml Soln (100units/ml) SC SCH ×2 (05:57→12:16)
[2018-09-07] MEDS: ACCU-CHEK COMFORT CURVE STRIP VI SCH ×2 (05:57→12:15)
[2018-09-07] MEDS: INSULIN LANTUS (GLARGINE) 1 /0.01ml (100units/ml) SC SCH (05:57)
[2018-09-07 09:00] VITALS: BP 116/53
[2018-09-07] MEDS: lamoTRIgine 100 MG TAB PO SCH (10:22)
[2018-09-07] MEDS: DOCUSATE SOD 100 MG CAP PO SCH (10:22)
[2018-09-07] MEDS: VENLAFAXINE HCL 37.5MG TABLET PO SCH (10:22)
[2018-09-07] MEDS: CARVEDILOL 3.125 MG TAB PO SCH (10:23)
[2018-09-07 12:56] VITALS: BP 122/55
[2018-09-07 15:26] VITALS: BP 122/55
== END 2018-09-07 16:00 | DRG 918 ==
LOC: EDBD 00:55 → ER 01:04 → OVERFLOW 01:05 → WEST WING 08:35
PROVIDERS: ADMIT Nurse Practitioner Family; ATTEND Hospitalist
DX: T38.3X2A Poisoning by insulin and oral hypoglycemic [antidiabetic] drugs, intentional self-harm, initial encounter (principal); E11.649 Type 2 diabetes mellitus with hypoglycemia without coma; F31.9 Bipolar disorder, unspecified; I25.10 Atherosclerotic heart disease of native coronary artery without angina pectoris; E78.5 Hyperlipidemia, unspecified; I11.0 Hypertensive heart disease with heart failure; I50.9 Heart failure, unspecified; E03.9 Hypothyroidism, unspecified; Z79.4 Long term (current) use of insulin; Z91.5 Personal history of self-harm; Z86.73 Personal history of transient ischemic attack (TIA), and cerebral infarction without residual deficits; Z90.49 Acquired absence of other specified parts of digestive tract; Z98.51 Tubal ligation status; Z80.0 Family history of malignant neoplasm of digestive organs
CPT/HCPCS: 36415; 80048; 80053; 80307; 80320; 80329; 81001; 82962; 84443; 85025; 87081; 93005; 94761; 96372; G0378; J1815

== ENCOUNTER 2018-11-09 17:24 | Emergency (ER) | payer OTHER ==
[~2018-11-09] VITALS: Ht 167.6 cm; Wt 95.3 kg
[~2018-11-09 17:24] MED LIST changes: +ARIP1TAB5 PO; -ARIP1TAB7 PO; +BUPR150T6 PO; +CLON0.5T10 PO; +DULO60CA PO; -LAMO200T34 PO; +LISI10TA6 PO; +PRAZ2CAP PO; +WARF1TAB36 PO
[2018-11-09 19:00] LABS: Basophils # (auto) 0.1 uL; Basophils % (auto) 0.6 % (0.0-2.0); Eosinophils # (auto) 0.5 uL; Eosinophils % (auto) 3.5 % (0.0-7.0); Hematocrit 39.9 % (36.0-46.0); Hemoglobin 12.9 g/dL (12.2-16.2); Lymphocytes # (auto) 2.7 uL; Lymphocytes % (auto) 17.5 % (10.0-50.0); Mean Corpuscular Hemoglobin 28.1 pg (28.0-32.0); Mean Corpuscular Hgb Conc. 32.3 g/dL (32.0-36.0); Mean Corpuscular Volume 87.1 fL (80.0-100.0); Monocytes # (auto) 1.1 uL; Monocytes % (auto) 7.3 % (0.0-12.0); Neutrophils # (auto) 11.1 uL; Neutrophils % (auto) 71.1 % (37.0-80.0); Platelet Count (auto) 284 10^3/uL (140-450); Red Blood Cells 4.58 10^6/uL (4.0-5.20); Red Cell Distribution Width 13.7 % (11.8-14.3); White Blood Cell 15.6 10^3/uL (4.4-10.8)
[2018-11-09 19:19] LABS: Albumin 3.7 g/dL (3.4-5.0); BUN/Creatinine Ratio 14.2; Calcium 9.3 mg/dL (8.5-10.1); Magnesium 2.1 mg/dL (1.6-2.6)
[2018-11-09 19:35] LABS: Bilirubin, Total 0.4 mg/dL (0.2-1.0); Total Protein 8.3 g/dL (6.4-8.2)
[2018-11-10] MEDS ORDERED: HYDROcodone-ACET 5/325MG TAB PO ONE (01:30)
[2018-11-10 02:57] VITALS: BP 157/94
== END 2018-11-10 02:59 | disposition home or self-care (01) ==
LOC: ER 17:26
DX: R42 Dizziness and giddiness (principal); E11.65 Type 2 diabetes mellitus with hyperglycemia; E66.9 Obesity, unspecified; E78.00 Pure hypercholesterolemia, unspecified; I10 Essential (primary) hypertension; I25.2 Old myocardial infarction; I25.10 Atherosclerotic heart disease of native coronary artery without angina pectoris; Z68.33 Body mass index [BMI] 33.0-33.9, adult; Z79.4 Long term (current) use of insulin; Z79.899 Other long term (current) drug therapy; Z86.73 Personal history of transient ischemic attack (TIA), and cerebral infarction without residual deficits
CPT/HCPCS: 36415; 70450; 71046; 80053; 82010; 83735; 84484; 85025; 93005